=== PATIENT | female | born 2000 | race Caucasian/White ===

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

== ENCOUNTER 2021-01-22 10:03 | Emergency (ER) | payer OTHER ==
[2021-01-22] MEDS ORDERED: Amoxicillin/Potassium Clav 875 MG TAB ONE (10:42)
[2021-01-22] MEDS ORDERED: predniSONE 20 MG TAB ONE (10:42)
[2021-01-22] MEDS ORDERED: Ondansetron ODT 4 MG TAB ONE (13:04)
== END 2021-01-22 11:00 | disposition home or self-care (01) ==
LOC: MADERS 10:03
DX: J02.9 Acute pharyngitis, unspecified (principal)
CPT/HCPCS: 87081; 87430; 99283; J7512; Q0162

== ENCOUNTER 2024-04-19 13:52 | Emergency (ER) | payer OTHER ==
[2024-04-19 15:46] LABS: Pregu Control Background? CLEAR/WHITE (CLR/WHITE); Pregu Control Bar Appear? YES (CONTROL BAR)
[2024-04-19 15:49] LABS: Pregnancy Test - Urine (BHCG) Negative (Negative)
== END 2024-04-19 16:43 | disposition home or self-care (01) ==
LOC: MADERS 13:52
DX: S16.1XXA Strain of muscle, fascia and tendon at neck level, initial encounter (principal); S39.012A Strain of muscle, fascia and tendon of lower back, initial encounter; V89.2XXA Person injured in unspecified motor-vehicle accident, traffic, initial encounter
CPT/HCPCS: 72125; 72131; 81025